=== PATIENT | male | born 2000 | race Two or more races ===

== ENCOUNTER 2023-04-03 11:46 | Emergency (ER) | payer MEDICAID, OTHER ==
[~2023-04-03] VITALS: Ht 177.8 cm; Wt 99.3 kg
[2023-04-03 13:14] VITALS: BP 128/76; PULSE 67; RESP 18; TEMP 98.1; O2SAT 99
== END 2023-04-03 14:34 | disposition home or self-care (01) ==
LOC: ER 11:46
DX: R04.0 Epistaxis (principal)